=== PATIENT | male | born 1975 | race African-American/Black ===

== ENCOUNTER 2017-04-12 19:42 | Emergency (ER) | payer MEDICAID ==
[~2017-04-12] VITALS: Ht 172.7 cm; Wt 86.6 kg
[2017-04-13 02:05] VITALS: BP 138/87
== END 2017-04-13 04:21 | disposition home or self-care (01) ==
LOC: ER 19:42
DX: R07.0 Pain in throat (principal); R09.89 Other specified symptoms and signs involving the circulatory and respiratory systems; I10 Essential (primary) hypertension; Z90.49 Acquired absence of other specified parts of digestive tract
CPT/HCPCS: 70360; 70490; 99284